=== PATIENT | male | born 1970 ===

== ENCOUNTER 2017-01-26 06:36 | Day surgery (SDC) | payer OTHER ==
[2017-01-26 06:45] VITALS: BMI 28.8
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
[2017-01-26] MEDS ORDERED: Lidocaine 4% (Laryng-O-Jet) Kit MM ONE (07:40)
[2017-01-26] MEDS ORDERED: Etomidate 20 mg/10ml Inj IV ONE (07:41)
[2017-01-26] MEDS ORDERED: Propofol 10 mg/ml Inj (20 ML) ONE ×2 (07:41→07:53)
[2017-01-26] MEDS ORDERED: Succinylcholine 200 mg/10 ml Inj IV ONE (07:42)
[2017-01-26] MEDS ORDERED: Rocuronium 10 mg/ml (5 ml) ONE (07:42)
[2017-01-26] MEDS ORDERED: Bupivacaine HCl 0.25% PF (30 ml) Inj ONE (07:48)
[2017-01-26] MEDS ORDERED: Lidocaine 2% Inj (20ml) ONE (07:50)
[2017-01-26] MEDS ORDERED: Midazolam 2 MG/2 ML VIAL ONE (07:53)
[2017-01-26] MEDS ORDERED: Lactated Ringer's 1,000 ML IV ONE (08:00)
[2017-01-26] MEDS ORDERED: Oxycodone/Acetaminophen 5/325 mg Tab PO PRN (10:04)
--- NOTE | 2017-01-26 10:04 | PCM.SURG1 ---
Surgeon's Initial Post Op Note - Surgeon's Notes Surgeon: Beth Michael MD Operations Staff Specialist Security: Kellen Adkins PA-C Type of Anesthesia: MAC, Block [facility]est[facility] Administered By: Dr. Oliveira Pre-Operative Diagnosis: Left shoulder impingement, possible labral tear Operative Findings: no labral tear Post-Operative Diagnosis: same Operation Performed: 1. Left shoulder arthroscopic debridement. 2. Arthroscopic subacromial decompression. 3. Arthoscopic distal clavicle resection Specimen/Specimens Removed: none Estimated Blood Loss: EBL {In ML}: 5 Blood Products Given: N/A Drains Used: No Drains Post-Op Condition: Fair Date of Surgery/Procedure: 01/26/17 Time of Surgery/Procedure: 10:03
[2017-01-26] MEDS ORDERED: Dexamethasone 4 mg/1 ml IVP PRN (10:07)
[2017-01-26] MEDS ORDERED: HYDROmorphone 0.5 mg/0.5 ml ISec IVP PRN (10:07)
[2017-01-26] MEDS ORDERED: Nitroglycerin 2% Ointment Foilpak UD TOP ONE ×2 (10:20→10:21)
--- NOTE | 2017-01-26 10:28 | PCM.ANESB1 ---
Interscalene Block - Brachial Plexus Date of Procedure: 01/26/17 Anesthesiologist: Tee Pre-Procedure Diagnosis: left impingement syndrome Post-Procedure Diagnosis: same Procedure Performed: Interscalene Block of Brachial Plexus Left - Procedure Interscalene Block of Brachial Plexus: This procedure was explained to the patient that it is for post-operative pain management. Consent was obtained after a thorough discussion with the patient regarding the benefits and possible complications of local anesthetic block of the Brachial Plexus at the Interscalene area. The patient was brought to the Operating Room and standard monitors were applied. Time out was held with the circulating nurse to confirm the correct surgery and appropriate block. After applying Oxygen by nasal cannula and administering IV Sedation, the patient's head was gently rotated away from the __left____operative shoulder and the anterior scalene groove was carefully palpated. The ultrasound transducer was then applied to the skin in the transverse plane and the brachial plexus was visualized lateral to the carotid artery and in between the anterior and middle scalene muscles. After identification,the anterior lateral portion of the neck was prepped with Betadine solution three times and Lidocaine 1% was injected subcutaneously for topical analgesia. At this point, a # 22 gauge Stimuplex 2 inches insulated needle was inserted into the interscalene groove and directed in a caudal and midline direction. The needle was inserted lateral to the ultrasound transducer in-plane towards the brachial plexus in a [id number] direction. Needle advancement was performed carefully under direct ultrasound visualization. Nerve stimulator was used and twitched of the affected extremity including the hand brachialis muscles, biceps and the deltoid was obtained at a current of 0.4 MA. After repeated negative aspiration,_10____cc of__2%___,____lidocaine were injected and this was followed with _20____cc of _0.5____% __ropivicaine___ . Under ultrasound guidance the local anesthetics were observed surrounding the roots of the brachial plexus. The needle was removed intact and sterile dressing was applied. The patient had stable vital signs, was conscious and in no apparent distress. The patient tolerated the interscalene block of the bracheal plexus well with stable vital signs and was prepared for subsequent surgery.
[2017-01-26] MEDS ORDERED: Albuterol-Ipratrop 3 mg / 0.5 (3 ml) UD INH STA (12:42)
[2017-01-26 12:56] VITALS: O2SAT 92
[2017-01-26 14:13] VITALS: BP 125/73; PULSE 67; RESP 18; TEMP 98
--- NOTE | 2017-02-07 08:38 | OP ---
PROCEDURE DATE: 01/26/2017 PREOPERATIVE DIAGNOSES: 1. Left shoulder labral tear. 2. Left shoulder impingement. 3. Left shoulder acromioclavicular joint arthrosis. 4. Left shoulder partial cuff tear. POSTOPERATIVE DIAGNOSES: 1. Left shoulder anterior superior labral tear, partial. 2. Left shoulder bursitis/subacromial impingement. 3. Left shoulder partial bursal rotator cuff tear. 4. Left shoulder acromioclavicular joint arthrosis. PROCEDURE PERFORMED: 1. Left shoulder arthroscopy. 2. Limited debridement, labrum and rotator cuff tears. 3. Left shoulder subacromial decompression/bursectomy/acromioplasty. 4. Left shoulder distal clavicle excision. ARTHROSCOPIC SURGEON: Emilio Michael MD. TYPE OF ANESTHESIA: General interscalene block. IV FLUID: Crystalloid. ESTIMATED BLOOD LOSS: Minimal. SPECIMEN: None. DRAINS: None. COMPLICATIONS: None. OPERATIVE PROCEDURE: Mr. Stanislaw Hernandez had interscalene block established and was placed under general anesthesia and then sedated, padded, prepped, and draped in a standard surgical fashion for beach-chair arthroscopy of the left shoulder. A time-out was performed confirming the patient, procedure, anatomic site and he was advanced with IV Alon protocol. Anatomic landmarks were created by instruments. Skin logan were , placed a small amount of saline prior to making the skin incision. The arthroscope was then advanced into the glenohumeral joint under needle localization at the rotator interval and an anterior superior port was established and a 7 mm cannula was placed anteriorly. Diagnostic arthroscopy commenced in the glenohumeral joint. The patient was noted to have some fraying at the anterior labrum that started at the level of the equator coming upwards towards approximately 12 o'clock position. The labral tissue was simply debrided with cautery and shaver back to stable tissue. At the superior labrum, negative peel back. No other signs of significant pathology. No other signs of pathology to the posterior-inferior labrum. surface relatively well maintained at least by . The inferior articular portion of the biceps tendon was normal in appearance as well as the portion entering the bicipital groove. On the articular side, the rotator cuff tendons were intact without significant pathology. The arthroscope was then replaced subacromially and a lateral port was established. The patient has skin dorsal tissue and a bursectomy was completed and the patient had a type 2 acromion converted to a type 1 with shaver and farzana. There was a small infraclavicular spur. It was co-planed in line of the acromioplasty. Further bursectomy was completed posteriorly and laterally. There was some partial tearing identified anterior to the infraspinatus area where it only involved superficial fibers and superficial . No repair was required. At the acromioclavicular joint, there was some substantial narrowing noted and decision was made to proceed forward with the distal clavicle excision, removing approximately 10 mm of bone from the distal clavicle full-thickness excision was confirmed under direct visualization through the arthroscope. As best as possible, superior and posterior capsule and ligaments were preserved. Final bleeders were controlled with cautery. At the conclusion of the procedure, arthroscopic instruments and cannulae were removed and the incision was closed with interrupted nylon suture. Skin washed and dried. Sterile dressing was provided with Xeroform, 4x4, ABD pads, . The patient tolerated the procedure well, taken to the recovery room awake, alert, in good condition. Emilio Michael MD
== END 2017-01-26 14:50 | disposition home or self-care (01) ==
LOC: H.OPSURG 06:36
PROVIDERS: ATTEND Specialist
DX: M19.012 Primary osteoarthritis, left shoulder (principal); I25.10 Atherosclerotic heart disease of native coronary artery without angina pectoris; Z95.810 Presence of automatic (implantable) cardiac defibrillator; I11.0 Hypertensive heart disease with heart failure; I50.9 Heart failure, unspecified; J43.9 Emphysema, unspecified; E11.9 Type 2 diabetes mellitus without complications; Z86.73 Personal history of transient ischemic attack (TIA), and cerebral infarction without residual deficits; M75.102 Unspecified rotator cuff tear or rupture of left shoulder, not specified as traumatic; M75.52 Bursitis of left shoulder
CPT/HCPCS: 29822; 29824; 29826; 29827; 82948; 94640; J0171; J0330; J2001; J2250; J2704; J3010; J7030; J7120